=== PATIENT | female | born 1985 | race African-American/Black ===

== ENCOUNTER 2016-08-26 20:19 | Emergency (ER) ==
--- NOTE | 2016-08-26 21:02 | PROVIDER DOCUMENTATION ---
HPI-Work Related Injury - General Source: patient - History of Present Illness-Work Injury Location of Pain/Injury: reports: hand(s) (left) Pain Radiation: reports: no radiation Quality of Pain: reports: other (tingling) Onset/Duration: reports: 3 days ago <Devang Castellanos - Last Filed: 08/26/16 21:02> <Sal Ramírez - Last Filed: 08/26/16 21:51> - General Chief Complaint: Laceration[s] Stated Complaint: FINGER LACERATION Time Seen by Provider: 08/26/16 20:45 Allergies/Adverse Reactions: Patient Allergies Allergy/AdvReac Type Severity Reaction Status Date / Time amoxicillin [Amoxicillin] Allergy Intermediate HIVES Verified 10/28/15 10:42 Penicillins Allergy Intermediate HIVES Verified 10/28/15 10:42 Home Medications: Home Medication List Medication Instructions Recorded Confirmed Last Taken Type Clindamycin [Cleocin] 150 mg PO Q6HR #30 capsule 08/26/16 Unknown Rx Ibuprofen [Motrin] 800 mg PO Q8H PRN PRN #20 tablet 08/26/16 Unknown Rx Mupirocin Ointment [Bactroban 1 applicatn TOP TID #1 tube 08/26/16 Unknown Rx Ointment] Omeprazole [Prilosec] 20 mg PO DAILY@0700 #20 capsule 08/26/16 Unknown Rx - History of Present Illness-Work Injury Nature of PresentingProblem: 31 y/o AAF presents to the ED with a laceration to her 2nd finger left hand that happened Thursday 11PM, 3 days ago with a safety knife. Steri strip were used to hold it together that evening but it keep opening up and draining. Complains the the tip of her finger is tingling. (Devang Castellanos) Review of Systems - Adult - REVIEW OF SYSTEMS - ADULT Constitutional: denies: chills, fever Eyes: reports: no symptoms reported Ears, Nose, Mouth & Throat: reports: no symptoms reported Cardiovascular: reports: no symptoms reported Respiratory: reports: no symptoms reported Gastrointestinal: reports: no symptoms reported Genitourinary: reports: no symptoms reported Musculoskeletal: reports: no symptoms reported Integumentary: reports: itching, other (3 day old laceration to 2nd finger left hand.). denies: rash Neurological: reports: no symptoms reported Psychiatric: reports: no symptoms reported Endocrine: reports: no symptoms reported Hematologic/Lymphatic: reports: no symptoms reported Allergic/Immunologic: reports: no symptoms reported All Other Systems: Reviewed and Negative <Devang Castellanos - Last Filed: 08/26/16 21:02> Past History - Adult - PAST MEDICAL HISTORY-ADULT Review of Records: reports: Old Records Reviewed, Nursing Assessment Review, Medications Reviewed Major Childhood Illnesses: reports: denies history Cardiovascular: reports: denies history Respiratory: reports: denies history Gastrointestinal: reports: denies history Obstetrical/Gynecological: reports: denies history Genitourinary: reports: denies history Musculoskeletal: reports: denies history Neurological: reports: denies history Endocrine/Immune: reports: denies history Other Conditions: reports: denies history - PRIOR SURGERIES/PROCEDURES Surgical/Procedure History: reports: reviewed, not pertinent, BTL - IMMUNIZATION STATUS Childhood Immunizations: See Nurse Assessment Flu Vaccine: See Nurse Assessment - FAMILY HISTORY Family History: reviewed, not pertinent - SOCIAL HISTORY Smoking: cigarettes, less than 1 pack/day Living Situation: family Occupation: [employer] <Devang Castellanos - Last Filed: 08/26/16 21:02> Physical Exam-Injury Related - Physical Exam-Injury Related Initial Vital Signs Reviewed: Yes General Appearance: appears well, alert, no apparent distress Eyes: PERRL/EOMI, pink conjunctivae Head, Ears, Nose, Mouth & Throat: moist mucous membranes, normal ENT inspection , TMs normal Neck: non-tender, full range of motion, supple, normal inspection Respiratory: lungs clear, normal breath sounds, no pleuratic chest pain, no respiratory distress, no accessory muscle use Cardiovascular: normal peripheral pulses, regular rate, rhythm Abdominal Exam: normal bowel sounds, non tender, soft Back Exam: normal inspection, no CVA tenderness, no vertebral tenderness Extremity: normal range of motion, non-tender, normal gait, normal inspection Integumentary: normal color, warm/dry, other (2.5 cm old lac dorsal side 2nd finger left hand) Neurologic: grossly normal, no motor/sensory deficits Psych/Mental Status: normal mood/affect, normal thought content, normal thought process, oriented x 3 <Devang Castellanos - Last Filed: 08/26/16 21:02> Departure <Devang Castellanos - Last Filed: 08/26/16 21:02> - Departure Time of Disposition Order: 21:49 Certified Medical Emergency: Emergent <Sal Ramírez - Last Filed: 08/26/16 21:51> - Departure DIAGNOSIS: Laceration Disposition: HOME 01 Condition: Stable Additional Instructions: KEEP WOUND CLEAN, DRY, COVERED. CHANGE BANDAGE DAILY. FOLLOW UP WITH [facility]. ED Follow Up Instructions: You have been treated by a care provider in the Emergency Department. These instructions are being provided to you so you can have an understanding of how to care for yourself upon discharge. Upon discharge from the Emergency Department, you are responsible for making arrangements for follow-up care by a physician of your choice. Take all prescribed medications as directed. Return to the Emergency Department immediately for any new or worsening symptoms. You may call the Physician Referral phone number at [phone] to obtain a list of Physicians who are taking new patients. Prescriptions: Mupirocin Ointment [Bactroban Ointment] 1 applicatn TOP TID #1 tube Clindamycin [Cleocin] 150 mg PO Q6HR #30 capsule Ibuprofen [Motrin] 800 mg PO Q8H PRN PRN #20 tablet PRN Reason: inflammation Omeprazole [Prilosec] 20 mg PO DAILY@0700 #20 capsule Referrals: Joaquin Zuluaga MD [Primary Care Provider] - Trey Viramontes MD [STAFF PHYSICIAN] - Attestation - Scribe Verification/Attestation Scribe:: Devang Castellanos Acting as Scribe for:: Sal Ramírez Scribe documention review:: This chart was documented by a scribe and accurately reflects the service the provider performed and the decisions made by the provider. <Devang Castellanos - Last Filed: 08/26/16 21:02> - Physician/ VIVIEN Attestation Patient care was provided by Advanced Practice Provider:: Yes Advanced Practice Provider:: Sal Ramírez Advanced Practice Provider documentation review:: The Mid-level provider documentation, treatment plan and medical decision making was reviewed by the physician who agrees with all treatment and medical decision making by the P. <Sal Ramírez - Last Filed: 08/26/16 21:51> Physician Attestation - Physician Attestation I, the provider, attest to the following statement:: Sal Ramírez Physician documentation Attestation:: This documentation recorded by the scribe accurately reflects the service I personally performed and the decisions made by me. <Sal Ramírez - Last Filed: 08/26/16 21:51>
[2016-08-26] MEDS ORDERED: CLINDAMYCIN IM ONE (21:49)
[2016-08-26 22:01] VITALS: BP 109/69
== END 2016-08-26 22:34 | disposition home or self-care (01) ==
LOC: P.ED 20:19
DX: S61.211A Laceration without foreign body of left index finger without damage to nail, initial encounter (principal); W26.0XXA Contact with knife, initial encounter; R20.2 Paresthesia of skin; L29.9 Pruritus, unspecified; F17.210 Nicotine dependence, cigarettes, uncomplicated
CPT/HCPCS: 99282; S0077